=== PATIENT | male | born 1965 | race Caucasian/White ===

== ENCOUNTER 2024-01-12 07:14 | Emergency (ER) | payer OTHER ==
[~2024-01-12] VITALS: Ht 172.7 cm; Wt 77.1 kg
[2024-01-12 07:41] VITALS: BP 152/92; PULSE 71; RESP 18; TEMP 97.7; O2SAT 97
[2024-01-12] MEDS ORDERED: MIRABULK PO (08:47)
[2024-01-12] MEDS ORDERED: SENN1TAB80 PO (08:47)
[2024-01-12] MEDS: MAGNESIUM HYDROXIDE 2400 MG/30 ML UDC PO ONE (09:01)
[2024-01-12] MEDS: SODIUM PHOSPHATE 118 ML ENEM RC ONE (09:03)
== END 2024-01-12 09:24 | disposition home or self-care (01) ==
LOC: MED 07:14
DX: K59.00 Constipation, unspecified (principal); Z98.890 Other specified postprocedural states; Z79.899 Other long term (current) drug therapy
CPT/HCPCS: 99284